=== PATIENT | female | born 1965 | race Caucasian/White ===

== ENCOUNTER 2023-10-03 12:12 | Observation (INO) ==
[2023-10-03] MEDS: predniSONE 20 MG TABLET PO ONE (12:39)
[2023-10-03] MEDS: ACETAMINOPHEN 1,000 MG/100 ML BAG IV ONE (12:39)
[2023-10-03] MEDS: ONDANSETRON 4 MG/2 ML VIAL IV ONE ×2 (12:39→17:11)
[2023-10-03] MEDS: IPRATROPIUM/ALBUTEROL 3 ML AMPUL.NEB NEB ONE ×2 (13:00→15:35)
[2023-10-03] MEDS: LACTATED RINGERS 1,000 ML IV ONE (13:39)
[2023-10-03] MEDS: 0.9 % SODIUM CHLORIDE 1,000 ML IV ONE (13:40)
[2023-10-03] MEDS: LEVOFLOXACIN 750 MG TABLET PO ONE (14:07)
[2023-10-03 14:53] LABS: Blood Urea Nitrogen 17 mg/dL (6-20); Calcium 9.5 mg/dL (8.6-10.4); Carbon Dioxide 28 mmol/L (22-30); Chloride 98 mmol/L (96-108); Glomerular Filtration Rate 81; Glucose 115 mg/dL (70-105)
[2023-10-03 15:02] LABS: Basophils # (Auto) 0.06 K/mcL (0.00-0.30); Basophils % (Auto) 0.8 % (0.0-2.0); Eosinophils # (Auto) 0.12 K/mcL (0.00-0.70); Eosinophils % (Auto) 1.6 % (0.0-7.0); Hemoglobin 11.2 g/dL (11.2-15.7); Lymphocytes # (Auto) 1.52 K/mcL (1.50-4.80); Lymphocytes % (Auto) 19.9 % (15.5-49.0); Mean Cell Volume 84.3 fL (80.0-100.0); Mean Corpuscular HGB Conc 29.5 g/dL (31.0-36.0); Mean Platelet Volume 10.6 fL (8.8-12.5); Monocytes # (Auto) 0.79 K/mcL (0.10-0.90); Monocytes % (Auto) 10.4 % (1.0-12.0); Neutrophils % (Auto) 67.2 % (38.0-78.0); Platelet Count 373 K/mcL (140-440); RBC 4.51 M/mcL (3.59-5.38); Red Cell Distribution Width 18.9 % (11.5-14.5); WBC 7.6 K/mcL (4.5-11.0)
[2023-10-03] MEDS ORDERED: POTASSIUM CHLORIDE 20 MEQ TABLET PO PRN ×2 (18:18)
[2023-10-03] MEDS ORDERED: DEXTROSE 31 GM ORAL.SUSP PO PRN (18:18)
[2023-10-03] MEDS ORDERED: POTASSIUM CHLORIDE 40 MEQ in DEXTROSE 5% IN WATER 500 ML IV PRN (18:18)
[2023-10-03] MEDS ORDERED: POLYETHYLENE GLYCOL 3350 17 GM PACKET PO PRN (18:18)
[2023-10-03] MEDS ORDERED: DEXTROSE 50% 50 ML VIAL IV PRN (18:18)
[2023-10-03] MEDS ORDERED: ENALAPRILAT 1.25 MG/ML VIAL IV PRN (18:18)
[2023-10-03] MEDS ORDERED: MAGNESIUM SULFATE 2 GM/50 ML BAG IV PRN (18:18)
[2023-10-03] MEDS ORDERED: IPRATROPIUM/ALBUTEROL 3 ML AMPUL.NEB NEB PRN (18:25)
[2023-10-03] MEDS: ACETAMINOPHEN 325 MG TABLET PO PRN (18:41)
[2023-10-03] MEDS: ACETAMINOPHEN 325 MG TABLET PO ONE (18:42)
[2023-10-03] MEDS ORDERED: IPRATROPIUM/ALBUTEROL 3 ML AMPUL.NEB NEB SCH (19:00)
[2023-10-03] MEDS: traMADol 50 MG TABLET PO PRN (19:38)
[2023-10-03] MEDS: methylPREDNISolone SOD SUCC 125 MG/2 ML VIAL IV SCH (19:38)
[2023-10-03] MEDS: IPRATROPIUM/ALBUTEROL 3 ML AMPUL.NEB NEB SCH (20:01)
[2023-10-03] MEDS: BUDESONIDE 0.5 MG/2 ML AMPUL.NEB NEB SCH (20:01)
[2023-10-03] MEDS: BUDESONIDE 0.5 MG/2 ML AMPUL.NEB ONE (20:01)
[2023-10-03] MEDS: 0.9 % SODIUM CHLORIDE 10 ML SYRINGE IV SCH (21:00)
[2023-10-03] MEDS: INSULIN LISPRO 1 UNIT/0.01 ML UNIT SQ SCH (21:11)
[2023-10-03] MEDS: ONDANSETRON 4 MG/2 ML VIAL IV PRN (21:11)
[2023-10-03] MEDS: SENNOSIDES 1 TABLET PO PRN (21:12)
[2023-10-03] MEDS: DOCUSATE SODIUM 100 MG CAPSULE PO SCH (21:12)
[2023-10-03] MEDS ORDERED: NITROGLYCERIN 0.4 MG TAB.SUBL SL PRN (21:23)
[2023-10-03] MEDS: BUPRENORPHINE HCL 2 MG TAB.SUBL SL SCH (21:46)
[2023-10-03] MEDS: APIXABAN 5 MG TABLET PO SCH (21:47)
[2023-10-03] MEDS: METOPROLOL TARTRATE 50 MG TABLET PO SCH (21:47)
[2023-10-04 06:23] LABS: Basophils # (Auto) 0.01 K/mcL (0.00-0.30); Basophils % (Auto) 0.2 % (0.0-2.0); Eosinophils # (Auto) 0 K/mcL (0.00-0.70); Eosinophils % (Auto) 0 % (0.0-7.0); Hematocrit 37.9 % (34.1-44.9); Hemoglobin 11.3 g/dL (11.2-15.7); Lymphocytes # (Auto) 0.99 K/mcL (1.50-4.80); Lymphocytes % (Auto) 16.4 % (15.5-49.0); Mean Cell Volume 84.2 fL (80.0-100.0); Mean Corpuscular HGB Conc 29.8 g/dL (31.0-36.0); Mean Platelet Volume 9.5 fL (8.8-12.5); Monocytes # (Auto) 0.29 K/mcL (0.10-0.90); Monocytes % (Auto) 4.8 % (1.0-12.0); Neutrophils % (Auto) 78.3 % (38.0-78.0); Platelet Count 326 K/mcL (140-440); Red Cell Distribution Width 18.3 % (11.5-14.5); WBC 6.1 K/mcL (4.5-11.0)
[2023-10-04 06:41] LABS: ALT/SGPT < 5 U/L (<40); AST/SGOT 20 U/L (<32); Albumin 3.8 gm/dL (3.2-5.2); Albumin/Globulin Ratio 1.4 (1.0-2.3); Alkaline Phosphatase 92 U/L (39-117); Bilirubin,Direct < 0.2 mg/dL (0-0.3); Bilirubin,Total < 0.2 mg/dL (0.1-1.0); Blood Urea Nitrogen 17 mg/dL (6-20); Calcium 8.8 mg/dL (8.6-10.4); Carbon Dioxide 23 mmol/L (22-30); Chloride 96 mmol/L (96-108); Globulin 2.8 gm/dL (2.2-3.7); Glomerular Filtration Rate 95; Glucose 185 mg/dL (70-105); Lactate Dehydrogenase 180 U/L (135-225); Phosphorous 3.9 mg/dL (2.5-4.5); Triglycerides 70 mg/dL (<150); Uric Acid 4.8 mg/dL (2.5-8.0)
[2023-10-04] MEDS: LOSARTAN 25 MG TABLET PO SCH (08:22)
[2023-10-04] MEDS: ISOSORBIDE MONONITRATE 60 MG TAB.XL.24H PO SCH (08:26)
[2023-10-04] MEDS: DULoxetine 30 MG CAPSULE PO SCH (08:26)
[2023-10-04] MEDS: PANTOPRAZOLE 40 MG TABLET PO SCH (08:26)
[2023-10-04] MEDS: LEVOFLOXACIN 750 MG TABLET PO SCH (08:26)
[2023-10-04] MEDS ORDERED: ENOXAPARIN 40 MG/0.4 ML SYRINGE SQ SCH (09:00)
[2023-10-04] MEDS: diphenhydrAMINE 25 MG CAPSULE PO PRN (09:30)
[2023-10-04] MEDS: METOPROLOL TARTRATE 50 MG TABLET PO SCH (09:43)
[2023-10-04] MEDS ORDERED: methylPREDNISolone SOD SUCC 125 MG/2 ML VIAL IV SCH (14:00)
== END 2023-10-04 14:00 | disposition home or self-care (01) | DRG 189 ==
LOC: ED 12:12 → INTOOBSV 17:49 → MEDSUR 17:49
PROVIDERS: ADMIT Internal Medicine; ATTEND Internal Medicine